=== PATIENT | female | born 1950 | race Caucasian/White ===

== ENCOUNTER 2017-04-12 13:12 | Day surgery (SDC) | payer OTHER ==
[2017-04-12] MEDS ORDERED: LIDOCAINE 2% (SDV) 5 ML INJ (15:31)
[2017-04-12] MEDS ORDERED: PROPOFOL 20 ML (15:31)
== END 2017-04-12 16:22 | disposition home or self-care (01) ==
LOC: GIL 13:12
DX: Z12.11 Encounter for screening for malignant neoplasm of colon (principal); K57.90 Diverticulosis of intestine, part unspecified, without perforation or abscess without bleeding; K64.8 Other hemorrhoids; E11.9 Type 2 diabetes mellitus without complications; I10 Essential (primary) hypertension
CPT/HCPCS: 45378